=== PATIENT | male | born 2000 | race Caucasian/White ===

== ENCOUNTER 2023-02-08 18:49 | Inpatient (IN) | payer OTHER ==
[~2023-02-08] VITALS: Ht 177.8 cm; Wt 77.7 kg
[~2023-02-08 18:49] MED LIST: AZIT250 PO; DIPH12.5EL; PRED20 PO
[2023-02-08 20:15] LABS: BASOPHILS ABSOLUTE AUTO 0.02 K/mm3 (0.00-0.23); BASOPHILS PERCENT AUTO 0 % (0-2); EOSINOPHILS ABSOLUTE AUTO 0.04 K/mm3 (0.00-0.68); EOSINOPHILS PERCENT AUTO 0 % (0-6); Hematocrit 41.8 % (37.0-53.0); Hemoglobin 14.4 g/dL (13.5-17.5); IMMATURE GRAN ABSOLUTE AUTO 0.03 K/mm3 (0.00-0.10); IMMATURE GRAN PERCENT AUTO 0 % (0-1); LYMPHOCYTES ABSOLUTE AUTO 1.71 K/mm3 (0.84-5.20); LYMPHOCYTES PERCENT AUTO 14 % (21-46); MONOCYTES ABSOLUTE AUTO 0.87 K/mm3 (0.16-1.47); MONOCYTES PERCENT AUTO 7 % (4-13); Mean Corpuscular HGB 32.3 pg (26.0-34.0); Mean Corpuscular HGB Conc 34.4 g/dL (31.5-36.5); Mean Corpuscular Volume 94 fL (80-100); Mean Platelet Volume 9.5 fL (9.1-12.4); NEUTROPHILS ABSOLUTE AUTO 9.79 K/mm3 (1.96-9.15); NEUTROPHILS PERCENT AUTO 79 % (41-73); Platelet Count 218 K/mm3 (150-400); RDW Coefficient Variation 12.7 % (11.7-14.2); RDW Standard Deviation 43.8 fL (35.1-46.3); Red Blood Cell Count 4.46 M/mm3 (4.30-5.90); White Blood Cell Count 12.46 K/mm3 (4.00-11.30)
[2023-02-08 21:15] LABS: Albumin, Blood 3.6 g/dL (3.4-5.0); Albumin/Globulin Ratio 0.9 (0.8-1.8); Bilirubin, Total 1.8 mg/dL (0.1-1.0); Bun/Creatinine Ratio 10.9 (12.0-20.0); Calcium, Blood 8.6 mg/dL (8.5-10.1); Creatinine, Blood 1.29 mg/dL (0.60-1.20); Globulin, Blood 4.1 g/dL (2.2-4.0); Potassium, Blood 4.9 mmol/L (3.5-5.5); Total Protein, Blood 7.7 g/dL (6.4-8.2)
[2023-02-08 22:00] VITALS: BP 133/59
[2023-02-09] VITALS (23 sets, daily range): BP systolic 84–135; BP diastolic 50–80
--- NOTE | 2023-02-09 02:20 | NUR ---
CALL TO PCP CALL TO PCP TO REQUEST SOMETHING FOR N/V. V/O FOR ZOFRAN 8MG IV Q8 PRN. MEDICATED PT FOR N/V AND PAIN MEDS REQUESTED BY PT.
--- NOTE | 2023-02-09 02:22 | NUR ---
PCP CALL FOR PAIN MEDS CALL TO HOSPITALIST INFORMED TO CALL ADMITTING PCP. CALL PLACED TO DR. BERGMAN FOR PAIN MEDS AND IV FLUIDS. V/O FOR 0.5MG DILAUDID IV Q2 PRN AND LR 125/HR TO START NOW.
--- NOTE | 2023-02-09 04:16 | NUR ---
PAIN MEDS PT CONTINUES TO REPORT 7-8/10 PAIN Q2 HOURS, MEDICATED W/ 0.5MG DILAUDID.
[2023-02-09 06:10] LABS: BASOPHILS ABSOLUTE AUTO 0.03 K/mm3 (0.00-0.23); BASOPHILS PERCENT AUTO 0 % (0-2); EOSINOPHILS ABSOLUTE AUTO 0.02 K/mm3 (0.00-0.68); EOSINOPHILS PERCENT AUTO 0 % (0-6); Hematocrit 40.1 % (37.0-53.0); Hemoglobin 13.9 g/dL (13.5-17.5); IMMATURE GRAN ABSOLUTE AUTO 0.07 K/mm3 (0.00-0.10); IMMATURE GRAN PERCENT AUTO 1 % (0-1); LYMPHOCYTES ABSOLUTE AUTO 1.04 K/mm3 (0.84-5.20); LYMPHOCYTES PERCENT AUTO 8 % (21-46); MONOCYTES ABSOLUTE AUTO 1.12 K/mm3 (0.16-1.47); MONOCYTES PERCENT AUTO 9 % (4-13); Mean Corpuscular HGB 32.5 pg (26.0-34.0); Mean Corpuscular HGB Conc 34.7 g/dL (31.5-36.5); Mean Corpuscular Volume 94 fL (80-100); Mean Platelet Volume 9.1 fL (9.1-12.4); NEUTROPHILS ABSOLUTE AUTO 10.93 K/mm3 (1.96-9.15); NEUTROPHILS PERCENT AUTO 83 % (41-73); Platelet Count 210 K/mm3 (150-400); RDW Coefficient Variation 12.8 % (11.7-14.2); RDW Standard Deviation 44.5 fL (35.1-46.3); Red Blood Cell Count 4.28 M/mm3 (4.30-5.90); White Blood Cell Count 13.21 K/mm3 (4.00-11.30)
[2023-02-09 06:33] LABS: Albumin, Blood 3.5 g/dL (3.4-5.0); Albumin/Globulin Ratio 0.9 (0.8-1.8); Bilirubin, Total 1.8 mg/dL (0.1-1.0); Bun/Creatinine Ratio 7.1 (12.0-20.0); Calcium, Blood 8.9 mg/dL (8.5-10.1); Creatinine, Blood 1.4 mg/dL (0.60-1.20); Globulin, Blood 3.7 g/dL (2.2-4.0); Potassium, Blood 4.3 mmol/L (3.5-5.5); Total Protein, Blood 7.2 g/dL (6.4-8.2)
--- NOTE | 2023-02-09 06:46 | NUR ---
SHIFT SUMMARY ER ADMIT FOR APPY. A&OX4, INDEPENDANT IN ROOM. REPORTS 7-03/25 PAIN CONSISTANTLY T/O NIGHT. MEDICATED W/ 0.5ML DILAUDED Q2. PT EXPERIENCED N/V FOLLOWING [employer] [facility] [employer]. PCP NOTIFIED FOR ZOFRAN, MEDICATED X1, CURRENTLY REPORTS NO N/V. PLANS FOR SURGERY TODAY FOLLOWING PCP F/U.
--- NOTE | 2023-02-09 10:26 | NUR ---
THE PATIENT WAS BROUGHT TO DAY SURGERY FOR HIS PROCEDURE.
--- NOTE | 2023-02-09 17:35 | NUR ---
SHIFT SUMMARY PT POD 0 LAP APPY FOUND TO BE RUPTURED. SURI DRAIN W/SS DRAINAGE IN BULB. PT HAS HAD C/O PAIN SINCE ARRIVAL TO UNIT MEDICATED ONCE WITH 0.5MG DILAUDID AND ONCE WITH 5MG ROXICODONE. PT SYSTOLIC BP LOW 80'S, NOTIFIED, ORDER FOR 1000ML BOLUS WHICH IS RUNNING AT THIS TIME. IF BP CONTINUES TO BE HYPOTENSIVE WILL CONSULT HOSPITALIST. PT TOLERATING SMALL AMTS CLEAR LIQUIDS, WILL ADVANCE TOLERATED. CONTINUE IV ABX AT THIS TIME.
[2023-02-10 00:42] VITALS: BP 104/78
[2023-02-10 05:03] VITALS: BP 107/52
--- NOTE | 2023-02-10 07:20 | NUR ---
SHIFT SUMMARY POD1 RUPTURED APPY, SURI DRAIN IN PLACE TO RIGHT LOWER ABD. 3 OTHER INCISION SITES, C/D, NO REDNESS OR DRAINAGE. A&OX4, INDEPENDANT IN ROOM, POST OP INITIAL FEVERS OF 102.9 THAT HAS CONTINUED TO DECLINE THIS SHIFT TO 99.6 PT CONTINUES TO REPORT 6-7/10 PAIN TO ABD AND GAS. EDUCATED PT ON AMBULATION TO ASSIST W/ GAS. PT CONTINUED IVF, BUT TOLERATING PO W/ NO C/O N/V. NO ACUTE CHANGES THIS SHIFT. S/O IN ROOM AND ASSISTS W/ PT CARE.
[2023-02-10 07:59] VITALS: BP 109/55
[2023-02-10 16:31] VITALS: BP 116/71
--- NOTE | 2023-02-10 17:28 | NUR ---
NOTE PT ALERT. T-MAX 99.4 TODAY. UP WALKING IN THE HALLWAY WITH SBA, FAVORING RIGHT HIP/ABD. PASSING A LARGE AMOUNT OF FLATUS. MEDICATED FOR PAIN X2. DRINKING WELL. APPETITE LIMITED. LR AT 125 ML/HR INFUSING. VOIDING WELL. SURI DRAIN WITH SCANT OF CRANBERRY COLORED, NON ODORIUOS FLUID. SURI SECURMENT DEVICE IN PLACE. CONTINUE POC.
[2023-02-10 19:50] VITALS: BP 112/66
[2023-02-11 03:10] VITALS: BP 127/65
--- NOTE | 2023-02-11 06:34 | NUR ---
SHIFT SUMMARY PT REPORTED CONSTANT BACK MUSCLE SPAMS. ORDERED VALIUM HELPED SOME. PT ALSO HAD INCREASED PAIN DURING THE NIGHT. PT REQUIRED IV PAIN MEDS FOR BREAKTHROUGH. PT REPORTED HE WAS ABLE TO HAVE A BM AND PASS LARGE AMOUNTS OF GAS. PT STATES HE FEELS MUCH BETTER THIS AM. PT ALSO HAD A SHOWER. CALL LIGHT IN REACH.
[2023-02-11 07:27] VITALS: BP 115/65
[2023-02-11 09:03] LABS: BASOPHILS ABSOLUTE AUTO 0.03 K/mm3 (0.00-0.23); BASOPHILS PERCENT AUTO 0 % (0-2); EOSINOPHILS ABSOLUTE AUTO 0.05 K/mm3 (0.00-0.68); EOSINOPHILS PERCENT AUTO 1 % (0-6); Hematocrit 34.6 % (37.0-53.0); IMMATURE GRAN ABSOLUTE AUTO 0.03 K/mm3 (0.00-0.10); IMMATURE GRAN PERCENT AUTO 0 % (0-1); LYMPHOCYTES ABSOLUTE AUTO 1.02 K/mm3 (0.84-5.20); LYMPHOCYTES PERCENT AUTO 11 % (21-46); MONOCYTES ABSOLUTE AUTO 0.86 K/mm3 (0.16-1.47); MONOCYTES PERCENT AUTO 9 % (4-13); Mean Corpuscular HGB 32.7 pg (26.0-34.0); Mean Corpuscular HGB Conc 34.7 g/dL (31.5-36.5); Mean Corpuscular Volume 94 fL (80-100); Mean Platelet Volume 9.2 fL (9.1-12.4); NEUTROPHILS ABSOLUTE AUTO 7.47 K/mm3 (1.96-9.15); NEUTROPHILS PERCENT AUTO 79 % (41-73); Platelet Count 178 K/mm3 (150-400); RDW Coefficient Variation 12.6 % (11.7-14.2); RDW Standard Deviation 43.9 fL (35.1-46.3); Red Blood Cell Count 3.67 M/mm3 (4.30-5.90); White Blood Cell Count 9.46 K/mm3 (4.00-11.30)
[2023-02-11 09:19] LABS: Bun/Creatinine Ratio 6.4 (12.0-20.0); Calcium, Blood 8.5 mg/dL (8.5-10.1); Creatinine, Blood 1.41 mg/dL (0.60-1.20); Potassium, Blood 3.8 mmol/L (3.5-5.5)
--- NOTE | 2023-02-11 10:19 | NUR ---
DISCHARGE DISCHARGE ORDERS RECEIVED FOR PT. PT DOES NOT FEEL COMFORTABLE GOING HOME WITH THE DRAIN AND THAT HIS FEVER HAS NOT GONE DOWN YET. PT DID TALK WITH DR BERGMAN ABOUT 1 MORE NIGHT OF ANTIBIOTICS AND GETTING THE DRAIN OUT TOMORROW. CONTINUE POC.
[2023-02-11 15:23] VITALS: BP 117/69
[2023-02-11 19:26] VITALS: BP 119/62
[2023-02-12 02:57] VITALS: BP 111/63
--- NOTE | 2023-02-12 06:02 | NUR ---
SHIFT SUMMARY PT IS A&O4, AD BASSAM, RA, VSS, PRN PAIN MEDICATION GIVEN PER OCT, BULB DRAIN OUTPUT 10CC THIS SHIFT, NO ACUTE OVERNIGHT EVENTS CONTINUE POC
[2023-02-12 08:02] VITALS: BP 114/64
--- NOTE | 2023-02-12 10:00 | NUR ---
SURI DRAIN REMOVED WITHOUT COMPLICATION. 2IN GAUZE AND TEGADERM APPLIED TO PT, WITH INSTRUCTIONS IT NEEDS TO REMAIN IN PLACE UNTIL THIS TIME TOMORROW. IF NEC THE PT MAY APPLY BANDAID OVER THE AREA IF NEEDED. PT AND REP UNDERSTANDING THOSE DIRECTIONS.
[2023-02-12] MEDS ORDERED: OXYC5 (10:06)
[2023-02-12] MEDS ORDERED: AMOCLA875 PO (10:06)
--- NOTE | 2023-02-12 10:15 | NUR ---
DISCHARGE SUMMARY PT A&OX4, VSS/RA, ELI PO, VOIDING, AMB INDEPENDENTLY/DRESSED SELF, PAIN MANAGED, IV DC'D, /STAFF RN PRESENT. DC INS PROVIDED. PT AND REP UNDERSTANDING THOSE INSTRUCTIONS INCLUDING FU WITH SURGEON 2 WKS, OK TO REMOVE GAUZE/TEGADERM 02/13 OVER DRAIN SITE. 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 BOTH PARTIES WERE EDUCATED ON RISK RE IGNITION SOURCES AND RISK OF INJURY WHILE OXYGEN IS IN USE, BOTH PARTIES DENY SMOKING AND VERBALIZED UNDERSTANDING. LEFT FLOOR, WALKED OUT WITH /STAFF RN, DECLINING WC, WITH ALL PERSONAL POSSESSIONS INCLUDING DC PACKET.
== END 2023-02-12 10:22 | disposition home or self-care (01) | DRG 853 ==
LOC: ER 18:49 → MEDS 18:52 → ER 20:06 → MEDS 20:06 → ENPENDDIS 02-12 08:27 → MEDS 02-12 10:22
PROVIDERS: Physician Assistant; ADMIT Surgery
PROC: 0W9G40Z Drainage of Peritoneal Cavity with Drainage Device, Percutaneous Endoscopic Approach (ICD-10-PCS; 2023-02-09)
PROC: 3E03329 Introduction of Other Anti-infective into Peripheral Vein, Percutaneous Approach (ICD-10-PCS; 2023-02-09)
PROC: 0DTJ4ZZ Resection of Appendix, Percutaneous Endoscopic Approach (ICD-10-PCS; principal; 2023-02-09 11:00)
DX: A41.9 Sepsis, unspecified organism (principal); K35.33 Acute appendicitis with perforation, localized peritonitis, and gangrene, with abscess; I95.9 Hypotension, unspecified; Z79.2 Long term (current) use of antibiotics; Z79.899 Other long term (current) drug therapy; Z79.51 Long term (current) use of inhaled steroids
CPT/HCPCS: 36415; 80048; 80053; 85025; 88304; 96361; 96374; 96376; 99284-25; A9270; G0378; J1100; J1170; J1885; J2250; J2405; J2543; J2704; J2710; J2765; J3010; J7030; J7120